=== PATIENT | female | born 2000 | race Hispanic/Latino ===

== ENCOUNTER 2020-07-10 19:40 | Inpatient (IN) | payer MEDICAID ==
[2020-07-10 21:27] LABS: Hematocrit 36.2 % (30.3-42.9); Hemoglobin 12.4 gm/dl (10.1-14.3); Mean Corpuscular HGB Conc 34 % (30-34); Mean Corpuscular Volume 92 fl (79-97); Platelet Count 223 K/mm3 (140-440); Red Blood Count 3.93 M/mm3 (3.65-5.03); Red Cell Distribution Width 15.6 % (13.2-15.2)
[2020-07-10 21:43] LABS: Bacteria,Urine 3+ /HPF (Negative); Bilirubin,Urine NEG (Negative); Blood,Urine NEG (Negative); Color,Urine Yellow (Yellow); Mucus,Urine FEW /HPF; Protein,Urine <15 mg/dL mg/dL (Negative); Urobilinogen,Urine < 2.0 mg/dL (<2.0)
[2020-07-10] MEDS ORDERED: LIDOCAINE (2%) 20 MG/1 ML VIAL 20 ML MDV INFILTRATI ONE (21:45)
[2020-07-10] MEDS ORDERED: fentaNYL 100 MCG/2 ML INJ IV PRN (21:45)
[2020-07-10] MEDS ORDERED: NALOXONE 0.4 MG/1 ML INJ IV PRN (21:45)
[2020-07-10] MEDS ORDERED: BUTORPHANOL 2 MG/1 ML INJ IV PRN (21:45)
[2020-07-10] MEDS ORDERED: PROMETHAZINE 25 MG TAB PO PRN (21:45)
[2020-07-10] MEDS ORDERED: ePHEDrine SULFATE 50 MG/1 ML INJ IV PRN (21:45)
[2020-07-10] MEDS ORDERED: ONDANSETRON 4 MG/2 ML INJ IV PRN (21:45)
[2020-07-10] MEDS ORDERED: TERBUTALINE 1 MG/1 ML INJ SUB-Q PRN (21:45)
[2020-07-10] MEDS ORDERED: MINERAL OIL 30 ML ORAL LIQD PO PRN (21:45)
[2020-07-10] MEDS ORDERED: OXYTOCIN DRIP 30 UNITS/500 ML BAG IV SCH (22:00)
--- NOTE | 2020-07-10 22:03 | History and Physical Report ---
History of Present Illness Date of examination: 07/10/20 Date of admission: 07/10/20 Chief complaint: Sent from office for elevated blood pressure History of present illness: Pt is a 20 yo at 40w5d EGA who presents from [facility] for BP monitoring. She was evaluated at the office earlier today and was found to have mild range BP. She denies SOUSA, scotomata, RUQ pain, swelling, contractions, bleeding, or leaking fluid. She reports positive movement. Her course has been uncomplicated. GBS negative. 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/uterine surgery Social history: no significant social history - Obstetrical History Expected Date of Delivery: 07/05/20 Actual Gestation: 40 Week(s) 5 Day(s) : 1 Para: 0 Medications and Allergies Allergies Allergy/AdvReac Type Severity Reaction Status Date / Time No Known Allergies Allergy Unverified 07/10/20 20:15 Active Meds: Active Medications Butorphanol Tartrate (Butorphanol 2 Mg/1 Ml Inj) 1 mg IV Q2H PRN PRN Reason: Pain, Moderate(4-6) LABOR PAIN Butorphanol Tartrate (Butorphanol 2 Mg/1 Ml Inj) 2 mg IV Q2H PRN PRN Reason: Pain , Severe (7-10) Dinoprostone (Dinoprostone 10 Mg Vag Supp) 10 mg VG ONCE ONE Stop: 07/11/20 00:46 Ephedrine Sulfate (Ephedrine Sulfate 50 Mg/1 Ml Inj) 10 mg IV Q2M PRN PRN Reason: Hypotension Fentanyl (Fentanyl 100 Mcg/2 Ml Inj) 100 mcg IV Q2H PRN PRN Reason: Pain,Severe (7-10) LABOR PAIN Lactated Ringer's (Lactated Ringers) 1,000 mls @ 125 mls/hr IV DIRECT REMEDIOS Oxytocin/Sodium Chloride (Pitocin/Ns 30 Unit/500ml) 30 units in 500 mls @ 40 mls/hr IV TITR REMEDIOS; Protocol Lidocaine (Lidocaine (2%) 20 Mg/1 Ml Vial 20 Ml Mdv) 20 ml INFILTRATI ONCE ONE Stop: 07/10/20 21:46 Mineral Oil (Mineral Oil 30 Ml Oral Liqd) 30 ml PO QHS PRN PRN Reason: Constipation Naloxone HCl (Naloxone 0.4 Mg/1 Ml Inj) 0.1 mg IV Q2MIN PRN PRN Reason: Res Rate </= 8 or 02 SAT < 92% Ondansetron HCl (Ondansetron 4 Mg/2 Ml Inj) 4 mg IV Q8H PRN PRN Reason: Nausea And Vomiting Promethazine HCl (Promethazine 25 Mg Tab) 25 mg PO Q6H PRN PRN Reason: Nausea And Vomiting Terbutaline Sulfate (Terbutaline 1 Mg/1 Ml Inj) 0.25 mg SUB-Q ONCE PRN PRN Reason: Hyperstimulation/Hypertonicity Review of Systems All systems: negative Genitourinary: no vaginal bleeding, no leakage of fluid, no contractions - Vital Signs Vital signs: Vital Signs Temp Resp 98.8 F 18 07/10/20 20:25 07/10/20 20:25 Temp Pulse Resp BP Pulse Ox 98.8 F 103 H 18 136/80 07/10/20 20:25 07/10/20 20:54 07/10/20 20:25 07/10/20 20:54 - Physical Exam Abdomen: Positive: soft Uterus: Positive: enlarged (gravid, cephalic, EFW 9lb) Extremities: Positive: normal - Obstetrical FHR: category 1 Uterine Contraction Monitor Mode: External Cervical Dilatation: 0.5 (per RN) Uterine Contraction Pattern: Irregular Uterine Tone Measurement Phase: Contraction Uterine Contraction Intensity: Mild Results Result Diagrams: 07/10/20 21:10 Abnormal lab results 07/10/20 07/10/20 Range/Units 20:20 21:10 WBC 11.4 H (4.5-11.0) K/mm3 RDW 15.6 H (13.2-15.2) % U Epithel Cells (Auto) 32.0 H (0-13.0) /HPF All other labs normal. Assessment and Plan A: 20 yo at 40w5d EGA Gestational HTN EFW 9lb by Hang's GBS negative, membranes intact P: Admit to L&D Induction of labor- Cervidil Closely monitor clinical status
[2020-07-10] MEDS: LACTATED RINGERS 1,000 ML IV SCH (23:15)
[2020-07-11] MEDS ORDERED: DINOPROSTONE 10 MG VAG SUPP VG ONE (00:45)
[2020-07-11] MEDS: LACTATED RINGERS 1,000 ML IV SCH ×4 (04:07→21:42)
[2020-07-11] MEDS: miSOPROStol 25 MCG TAB VG PRN ×2 (16:30→21:21)
--- NOTE | 2020-07-11 18:23 | Progress Note ---
Assessment and Plan A: IUP at 40w6d Gestational HTN Morbid Obesity GBS Negative P: Continue cervical ripening Closely monitor maternal and status Subjective - Subjective Date of service: 07/11/20 Principal diagnosis: undergoing induction of labor, Gestational HTN Interval history: Pt s/p cervidil. s/p 1 dose of cytotec 25 mcg bucally. Patient reports: contractions, no new complaints, no loss of fluid, no vaginal bleeding Objective - Vital Signs Vital Signs: Vital Signs - 12hr 07/11/20 07/11/20 07/11/20 06:30 06:59 07:29 Temperature Pulse Rate 104 H 91 H 88 Respiratory Rate Blood Pressure 134/60 112/56 125/57 Blood Pressure [Left] O2 Sat by Pulse Oximetry 07/11/20 07/11/20 07/11/20 07:59 08:30 08:31 Temperature 98.0 F Pulse Rate 104 H 86 75 Respiratory 18 Rate Blood Pressure 101/49 109/53 Blood Pressure 109/53 [Left] O2 Sat by Pulse 100 Oximetry 07/11/20 07/11/20 07/11/20 08:59 09:29 10:00 Temperature Pulse Rate 90 96 H 100 H Respiratory Rate Blood Pressure 131/70 117/72 113/70 Blood Pressure [Left] O2 Sat by Pulse Oximetry 07/11/20 07/11/20 07/11/20 10:29 10:59 11:30 Temperature Pulse Rate 91 H 104 H 86 Respiratory Rate Blood Pressure 99/51 116/53 96/50 Blood Pressure [Left] O2 Sat by Pulse Oximetry 07/11/20 07/11/20 07/11/20 11:59 12:12 12:29 Temperature 97.8 F Pulse Rate 98 H 100 H Respiratory 16 Rate Blood Pressure 129/71 130/82 Blood Pressure [Left] O2 Sat by Pulse Oximetry 07/11/20 07/11/20 15:28 15:56 Temperature 97.9 F Pulse Rate 102 H Respiratory 16 Rate Blood Pressure 141/80 Blood Pressure [Left] O2 Sat by Pulse Oximetry - Exam Breasts: deferred Abdomen: Present: soft (obese, gravid ) Uterus: Present: normal (gravid ) FHR: auscultation normal Cervical Dilatation: 0 (per RN ) Uterine Contraction Pattern: Irregular Uterine Tone Measurement Phase: Resting - Labs Labs: Abnormal Labs 07/10/20 07/10/20 20:20 21:10 WBC 11.4 H RDW 15.6 H Urine WBC (Auto) 9.0 H U Epithel Cells (Auto) 32.0 H Laboratory Results - last 24 hr 07/10/20 07/10/20 07/10/20 20:20 21:10 21:10 WBC 11.4 H RBC 3.93 Hgb 12.4 Hct 36.2 MCV 92 MCH 32 MCHC 34 RDW 15.6 H Plt Count 223 Urine Color Yellow Urine Turbidity Cloudy Urine pH 7.0 Ur Specific [place] 1.005 Urine Protein <15 mg/dl Urine Glucose (UA) Neg Urine Ketones Neg Urine Blood Neg Urine Nitrite Neg Urine Bilirubin Neg Urine Urobilinogen < 2.0 Ur Leukocyte Esterase Tr Urine WBC (Auto) 9.0 H Urine RBC (Auto) 2.0 U Epithel Cells (Auto) 32.0 H Urine Bacteria (Auto) 3+ Urine Mucus Few Syphilis IgG Antibody Coronavirus (PCR) Hep Bs Antigen Non-reactive HIV 1&2 Antibody Rapid Non react HIV P24 Antigen Non react Blood Type Antibody Screen 07/10/20 07/10/20 07/11/20 21:10 21:10 Unknown WBC RBC Hgb Hct MCV MCH MCHC RDW Plt Count Urine Color Urine Turbidity Urine pH Ur Specific [place] Urine Protein Urine Glucose (UA) Urine Ketones Urine Blood Urine Nitrite Urine Bilirubin Urine Urobilinogen Ur Leukocyte Esterase Urine WBC (Auto) Urine RBC (Auto) U Epithel Cells (Auto) Urine Bacteria (Auto) Urine Mucus Syphilis IgG Antibody Nonreactive Coronavirus (PCR) Negative Hep Bs Antigen HIV 1&2 Antibody Rapid HIV P24 Antigen Blood Type O POSITIVE Antibody Screen Negative
[2020-07-12] MEDS: miSOPROStol 25 MCG TAB VG PRN (01:11)
[2020-07-12] MEDS: BUTORPHANOL 2 MG/1 ML INJ IV PRN ×2 (05:01→07:04)
[2020-07-12] MEDS ORDERED: fentaNYL-BUPIV 2 MCG/ML-0.125% 200 MCG/100 ML BAG EPIDURAL ONE (09:37)
[2020-07-12] MEDS ORDERED: NALOXONE 2 MG/2 ML INJ IV PRN (09:40)
[2020-07-12] MEDS ORDERED: ePHEDrine SULFATE 50 MG/1 ML INJ IV PRN (09:40)
--- NOTE | 2020-07-12 09:44 | Anesthesia Consultation ---
Anesthesia Consult and Med Hx Date of service: 07/12/20 - Airway Anesthetic Teeth Evaluation: Good, Poor ROM Head & Neck: Adequate Mental/Hyoid Distance: Adequate Mallampati Class: Class II Intubation Access Assessment: Good - Pulmonary Exam CTA: Yes - Cardiac Exam Cardiac Exam: RRR - Pre-Operative Health Status ASA Pre-Surgery Classification: ASA2 Proposed Anesthetic Plan: Epidural - Pulmonary Hx Smoking: No Hx Asthma: No Hx Respiratory Symptoms: No SOB: No COPD: No Home Oxygen Therapy: No Hx Pneumonia: No Hx Sleep Apnea: No - Cardiovascular System Hx Hypertension: No Hx Coronary Artery Disease: No Hx Heart Attack/AMI: No Hx Angina: No Hx Percutaneous Transluminal Coronary Angioplasty (PTCA): No Hx Cardia Arrhythmia: No Hx Pacemaker: No Hx Internal Defibrillator: No Hx Valvular Heart Disease: No Hx Heart Murmur: No Hx Peripheral Vascular Disease: No - Central Nervous System Hx Neuromuscular Disorder: No Hx Seizures: No CVA: No Hx Back Pain: Yes Hx Psychiatric Problems: Yes (ANXIETY DX 2014) - Gastrointestinal Hx Ulcer: No Hx Gastroesophageal Reflux Disease: Yes - Endocrine Hx Renal Disease: No Hx End Stage Renal Disease: No Hx Cirrhosis: No Hx Liver Disease: No Hx Insulin Dependent Diabetes: No Hx Non-Insulin Dependent Diabetes: No Hx Thyroid Disease: No Hx Hypothyroidism: No Hx Hyperthyroidism: No - Hematic Hx Anemia: No Hx Sickle Cell Disease: No - Other Systems Hx Alcohol Use: No Hx Substance Use: Yes (CBD) Hx Cancer: No Hx Obesity: Yes
--- NOTE | 2020-07-12 09:47 | Progress Note ---
Labor Epidural - Labor Epidural Start Time: 09:21 Stop Time: 09:32 Performed by:: GONSALO SWEET Procedure: Patient is requesting a laboring epidural for laboring pain. Patient IDed, H&P reviewed, all questions and concerns were answered, and consent was signed. Timeout was performed at bedside. Patient in sitting position. Sterile prep and drape was performed. 3ml of 1% lidocaine skin wheal at L[3]- L [4]. 18- gauge Tuohy epidural needle was advanced to loss of resistance with air technique. Negative CSF negative blood. Epidural catheter advanced to [11] centimeters. [NEGATIVE] Aspiration [NEGATIVE] test dose. Sterile dressing applied. Patient tolerated procedure.
--- NOTE | 2020-07-12 09:58 | Event Note ---
Date: 07/12/20 Pt now comfortable with epidural. Category II tracing. SVE: /-3/Intact. Continue routine intrapartum care.
[2020-07-12] MEDS ORDERED: fentaNYL-BUPIV 2 MCG/ML-0.125% 200 MCG/100 ML BAG EPIDURAL SCH (10:00)
[2020-07-12] MEDS: LACTATED RINGERS 1,000 ML IV SCH (10:06)
--- NOTE | 2020-07-12 12:06 | Event Note ---
Date: 07/12/20 Pt comfortable with epidural. Category I tracing. SVE: /-2. AROM- clear fluid. Continue pitocin augmentation. Closely monitor maternal and status.
[2020-07-12] MEDS ORDERED: FAMOTIDINE 20 MG/2 ML INJ IV ONE (15:45)
[2020-07-12] MEDS ORDERED: BICITRA ORAL LIQD 30ML PO ONE (15:45)
[2020-07-12] MEDS ORDERED: LACTATED RINGERS 1,000 ML IV SCH (15:45)
[2020-07-12] MEDS ORDERED: METOCLOPRAMIDE 10 MG/2 ML INJ IV ONE (15:45)
--- NOTE | 2020-07-12 15:48 | Event Note ---
Date: 07/12/20 Pt exam was /-2 after three hours of adequate contractions. Plan to proceed with primary section.
--- NOTE | 2020-07-12 15:53 | Anesthesia Day of Surgery ---
Anesthesia Day of Surgery - Day of Surgery Patient Examined: Yes Patient H&P Reviewed: Yes Patient is NPO: Yes Beta Blockers: No Cardiac Clearance: No Pulmonary Clearance: No Morgan's Test: N/A
[2020-07-12] MEDS ORDERED: ceFAZolin/Water 2 GM/20 ML 2 GM/20 ML SYRINGE IV NR (16:00)
[2020-07-12] MEDS ORDERED: OXYTOCIN DRIP 30 UNITS/500 ML BAG IV SCH ×2 (16:00→18:00)
[2020-07-12] MEDS ORDERED: WATER FOR IRRIG STERILE 1,500 ML BOTTLE IR ONE (16:20)
[2020-07-12] MEDS ORDERED: SODIUM CHLORIDE 0.9% IRR 1,500 ML BOTTLE IR ONE (16:20)
[2020-07-12] MEDS ORDERED: dexAMETHasone 20 MG/5 ML VIAL ONE (16:27)
[2020-07-12] MEDS ORDERED: ONDANSETRON 4 MG/2 ML INJ ONE (16:27)
[2020-07-12] MEDS ORDERED: BUPIVACAINE/PF (0.5%) 5 MG/1 ML 30 ML VIAL INFILTRATI ONE (16:27)
[2020-07-12] MEDS ORDERED: LIDOCAINE 2%/EPINEPHRINE 1:200,000 VIAL (20 ML) INFILTRATI ONE (16:27)
[2020-07-12] MEDS ORDERED: propofoL 200 MG/20 ML VIAL IV ONE (16:51)
[2020-07-12] MEDS ORDERED: miSOPROStol 200 MCG TAB ONE (16:51)
[2020-07-12] MEDS ORDERED: KETOROLAC 30 MG/1 ML INJ ONE (16:59)
--- NOTE | 2020-07-12 17:35 | Procedure Note ---
OB Delivery Note - Delivery Date of Delivery: 07/12/20 Surgeon: GARRY MARQUEZ Estimated blood loss: 1000cc - Section Preop diagnosis: arrest of dilation Postop diagnosis: same section procedure: section, primary low transverse Disposition: PACU Narrative: Please see delivery note - A at 1 minute: 8 at 5 minutes: 9 Gender: Male (4554g (10lb 0.6 oz) @ 1643 pm)
--- NOTE | 2020-07-12 17:42 | Operative Report ---
Operative Report Operative Report: Date of procedure: July 12, 2020 Preoperative diagnosis: 1) IUP at 41w0d 2) Arrest of Dilation 3) Morbid Obesity 4) Gestational Hypertension Postoperative diagnosis: Same 4) Macrosomia Procedure: Primary low transverse section Surgeon: Vania Tobar M.D. Anesthesia: Regional Findings: 1) Viable male , Apgars 8 and 9, weight 4554 g, (10 lb 0.6 oz) in cephalic presentation. True knot in the cord. 2) Normal-appearing uterus ovaries and tubes Estimated blood loss: 1000 mL IV fluids:2000 mL Urine output: 150 mL, clear at the end of the procedure Drains: Alvarez to gravity Specimens: Placenta to pathology Complications:None. Counts correct x 3 Disposition: Stable to PACU Indication for procedure: Pt is a 20 year old primigravia at 41 wks admitted for induction of labor secondary to gestational hypertension. She progressed to 8 cm and arrested there for over 3 hours. The decision was made to proceed with . Operation in detail: After the risks, benefits, alternatives and complications were explained to the patient she gave informed consent for the procedure. She was subsequently taken to the operating room where regional anesthesia was noted to be adequate. She was subsequently placed in the dorsal supine position with leftward tilt and prepped and draped in a normal sterile fashion. heart tones were noted prior to incision. A timeout was performed. A Pfannenstiel skin incision was made with the knife and carried down to the layer of the fascia with the Bovie. The fascia was incised in the midline and the fascial incision was extended bilaterally with the Bovie. The fascial incision was then stretched. The rectus muscles were then in the midline and partially transected for adequate visualization. The peritoneum was then entered bluntly. The peritoneal incision was extended with good visualization of the bladder. The peritoneal incision was then stretched. An Nabor retractor was placed. The bladder blade was then placed. The vesicouterine peritoneuam was graped with smooth pick ups and incised with Metzenbaum scissors. A bladder flap was then created digitally and the bladder blade was replaced. A transverse incision was made in the lower uterine segment with a knife and extended bilaterally with the bandage scissors. head delivered with ease, followed by shoulders and body. bulb suctioned at delivery. Cord clamped and cut. handed to NICU staff in attendance. Cord blood was collected. The placenta was then delivered manually. The uterus was then exteriorized and cleared of all clots and debris. The hysterotomy was then reapproximated with 0 Vicryl in a running locked fashion. A second layer of the same suture was used in imbricating fashion. The hysterotomy was inspected and hemostasis was noted. The gutters were irrigated and cleared of all clots and debris. The hysterotomy was again inspected and noted to be hemostatic. Surgicel was placed over the hysterotomy. The Nabor retractor was removed. The uterus was placed back into the peritoneal cavity. The peritoneum was reapproximated with 2-0 Vicryl in a running fashion incorporating the rectus muscles. Surgicel was placed over the rectus muscles. The fascia was reapproximated with 0 Vicryl in a running fashion. The subcutaneous tissue was reapproximated with 3-0 Vicryl in a running fashion. The skin was reapproximated with 4-0 Vicryl in a subcuticular fashion. The incision was then covered with steri strips and a pressure dressing. The procedure was then ended. The patient tolerated the procedure well and was taken to the PACU in stable condition. All instrument, lap, and needle counts were correct 3. Misoprostol 800 mcg per rectum administered.
[2020-07-12] MEDS ORDERED: MORPHINE 2 MG/1 ML INJ IV PRN (17:44)
[2020-07-12] MEDS ORDERED: NALOXONE 0.4 MG/1 ML INJ IV PRN (17:44)
[2020-07-12] MEDS ORDERED: LANOLIN/ZINC/DIMETHICONE (LANSINOH) 7 GM TP PRN (17:44)
[2020-07-12] MEDS ORDERED: MORPHINE 4 MG/1 ML INJ IV PRN (17:44)
[2020-07-12] MEDS ORDERED: WITCH HAZEL/ GLYCERIN PAD TP PRN (17:44)
[2020-07-12] MEDS ORDERED: MAGNESIUM HYDROXIDE (MOM) ORAL LIQD UDC PO PRN (17:44)
[2020-07-12] MEDS ORDERED: SIMETHICONE 80 MG CHEW TAB PO PRN (17:44)
[2020-07-12] MEDS ORDERED: NalbUPHINE 10 MG/1 ML INJ IV PRN (17:59)
[2020-07-12] MEDS ORDERED: PROMETHAZINE 25 MG RECT SUPP PR PRN (17:59)
[2020-07-12] MEDS ORDERED: HYDROmorphone 1 MG/1 ML INJ IV PRN (17:59)
[2020-07-12] MEDS ORDERED: diphenhydrAMINE 50 MG/ML VIAL IV PRN (17:59)
[2020-07-12] MEDS ORDERED: D5W/LACTATED RINGERS 1,000 ML IV SCH (18:00)
[2020-07-12] MEDS: KETOROLAC 30 MG/1 ML INJ IV SCH (22:18)
[2020-07-12] MEDS: D5W/LACTATED RINGERS 1,000 ML IV SCH (22:28)
[2020-07-12] MEDS: ceFAZolin/NS 1 GM/50 ML 1 GM/50 ML BAG IV SCH (23:47)
[2020-07-13] MEDS: KETOROLAC 30 MG/1 ML INJ IV SCH ×2 (04:13→11:19)
[2020-07-13] MEDS: D5W/LACTATED RINGERS 1,000 ML IV SCH (05:22)
[2020-07-13] MEDS ORDERED: DIPHtheria,PERTUSSIS(ACELL),TETANUS VACCINE/PF 0.5 ML VIAL IM ONE (06:00)
[2020-07-13] MEDS ORDERED: ceFAZolin/NS 1 GM/50 ML 1 GM/50 ML BAG IV ONE (08:11)
[2020-07-13] MEDS: ceFAZolin/NS 1 GM/50 ML 1 GM/50 ML BAG IV SCH (08:16)
[2020-07-13 08:56] LABS: Hematocrit 28.2 % (30.3-42.9); Hemoglobin 9.6 gm/dl (10.1-14.3)
[2020-07-13] MEDS: FERROUS SULFATE 325 MG TAB PO SCH (09:45)
[2020-07-13] MEDS: oxyCODONE /ACETAMINOPHEN 5-325MG TAB PO PRN ×3 (09:45→22:12)
--- NOTE | 2020-07-13 10:23 | Progress Note ---
Assessment and Plan A: POD#1 s/p primary at term Gestational Hypertension Morbid Obesity Acute Blood Loss Anemia P: Routine postop advances Subjective - Subjective Date of service: 07/13/20 Principal diagnosis: s/p primary , Morbid Obesity, Gestational HTN Interval history: Pt doing well this morning. Tolerating clears. No void yet after herring removal. Patient reports: appetite normal, pain well controlled, flatus, ambulating normally, no voiding normally (herring recently removed ) : doing well Objective - Vital Signs Latest vital signs: Vital Signs Temp Pulse Resp BP BP Pulse Ox 07/13/20 08:03 98.7 F 81 18 117/77 98 07/13/20 05:17 98.3 F 109 H 20 139/85 97 07/13/20 04:13 20 07/13/20 00:09 98.0 F 117 H 20 132/76 96 07/12/20 22:18 20 07/12/20 20:56 99.0 F 88 20 114/71 96 07/12/20 20:00 99.0 F 88 20 118/60 07/12/20 19:00 99.0 F 89 16 115/68 95 07/12/20 18:45 80 18 124/70 95 07/12/20 18:30 76 16 116/63 99 07/12/20 18:15 90 14 112/43 100 07/12/20 18:00 94 H 20 126/60 100 07/12/20 17:45 92 H 16 120/63 100 07/12/20 17:40 95 H 18 115/64 99 07/12/20 17:35 98.2 F 105 H 17 113/62 100 07/12/20 16:06 139 H 120/79 07/12/20 16:02 109 H 138/66 07/12/20 15:47 120 H 100 07/12/20 15:42 115 H 99 07/12/20 15:37 105 H 99 07/12/20 15:32 102 H 100 07/12/20 15:27 96 H 99 07/12/20 15:22 96 H 100 07/12/20 15:17 102 H 100 07/12/20 15:12 104 H 100 07/12/20 15:07 104 H 130/72 100 07/12/20 15:02 107 H 100 07/12/20 14:57 106 H 100 07/12/20 14:52 107 H 99 07/12/20 14:47 109 H 100 07/12/20 14:42 102 H 100 07/12/20 14:37 101 H 99 07/12/20 14:32 102 H 100 07/12/20 14:27 113 H 99 07/12/20 14:22 107 H 100 07/12/20 14:17 103 H 100 07/12/20 14:12 87 99 07/12/20 14:07 90 98 07/12/20 14:05 100 H 116/57 07/12/20 14:04 98.3 F 99 H 18 116/57 97 07/12/20 14:02 96 H 97 07/12/20 13:57 95 H 96 07/12/20 13:52 97 H 96 07/12/20 13:47 88 97 07/12/20 13:42 87 96 07/12/20 13:37 90 96 07/12/20 13:32 97 H 96 07/12/20 13:27 90 96 07/12/20 13:22 95 H 96 07/12/20 13:17 87 97 07/12/20 13:12 87 97 07/12/20 13:07 83 124/69 98 07/12/20 13:02 102 H 98 07/12/20 12:57 89 98 07/12/20 12:52 92 H 98 07/12/20 12:47 88 98 07/12/20 12:42 85 98 07/12/20 12:37 80 99 07/12/20 12:32 78 99 07/12/20 12:27 83 99 07/12/20 12:22 101 H 100 07/12/20 12:17 102 H 100 07/12/20 12:12 86 99 07/12/20 12:07 95 H 99 07/12/20 12:06 95 H 124/75 07/12/20 12:02 96 H 100 07/12/20 11:57 87 99 07/12/20 11:52 113 H 98 07/12/20 11:47 111 H 98 07/12/20 11:42 95 H 97 07/12/20 11:37 95 H 97 07/12/20 11:35 92 H 107/55 07/12/20 11:33 93 H 108/58 07/12/20 11:32 98 H 97 07/12/20 11:27 93 H 96 07/12/20 11:22 89 97 07/12/20 11:17 92 H 97 07/12/20 11:12 97 H 97 07/12/20 11:07 97 H 97 07/12/20 11:05 85 112/63 07/12/20 11:02 88 96 07/12/20 11:00 104 H 106/55 07/12/20 10:57 90 96 07/12/20 10:55 94 H 98/54 07/12/20 10:54 98.0 F 88 18 101/55 96 07/12/20 10:52 98 H 96 07/12/20 10:47 97 H 96 07/12/20 10:42 97 H 96 07/12/20 10:37 94 H 96 07/12/20 10:35 93 H 112/59 07/12/20 10:32 101 H 96 07/12/20 10:27 99 H 95 07/12/20 10:22 95 H 96 Intake and Output 07/12/20 07/13/20 07/13/20 22:59 06:59 14:59 Intake Total 2030.7 912.5 120 Output Total 250 Balance 1780.7 912.5 120 Intake: IV 1790.7 912.5 ANCEF/NS 1 GM/50 ML 1 gm 50 In 50 ml @ 100 mls/hr IV Q8H REMEDIOS Rx#:[id number] D5lr 1,000 ml @ 125 mls/ 862.5 hr IV DIRECT REMEDIOS Rx#: [id number] PITOCin/NS 30 UNIT/500ML 40.7 30 units In 500 ml @ 40 mls/hr IV TITR REMEDIOS Rx#: [id number] Oral 240 120 Output: Urine 250 Other: Total, Intake Amount 240 120 # Voids Void 900 1,600 Estimated Blood Loss 1,000 - Exam Breasts: Present: deferred Abdomen: Present: soft (obese ), distention (mild ) Extremities: Present: edema (1+) Incision: Present: dressed - Labs Labs: Abnormal lab results 07/13/20 Range/Units 08:22 Hgb 9.6 L (10.1-14.3) gm/dl Hct 28.2 L D (30.3-42.9) %
[2020-07-13] MEDS: MAGNESIUM HYDROXIDE (MOM) ORAL LIQD UDC PO SCH ×2 (11:18→22:08)
--- NOTE | 2020-07-13 11:35 | Post Anesthesia Evaluation ---
- Post Anesthesia Evaluation Patient Participated: Yes Airway Patent: Yes Stable Respiratory Function: Yes Nausea/Vomiting: No Temp > 96.8F: Yes Pain Manageable: Yes Adequeate Hydration: Yes Anesthesia Complications: No Block Receding Appropriately: Yes Patient on Ventilator: No
[2020-07-13] MEDS ORDERED: MEASLES, MUMPS & RUBELLA 12,500 UNIT/0.5 ML VACCINE SUB-Q ONE (17:45)
[2020-07-13] MEDS: IBUPROFEN 800 MG TAB PO PRN (23:15)
[2020-07-14] MEDS: oxyCODONE /ACETAMINOPHEN 5-325MG TAB PO PRN ×2 (02:30→10:16)
[2020-07-14] MEDS: IBUPROFEN 800 MG TAB PO PRN ×2 (06:27→16:03)
--- NOTE | 2020-07-14 09:01 | Progress Note ---
Regional Anesthesia Block - Regional Anesthesia Block Start Time: 17:38 Stop Time: 17:48 Performed By:: JOSE HERNANDEZ Procedure: Patient consented for TAP block for post surgical pain management. Patient identified, monitors placed, and time out performed. Mid axillary TAP identified bilaterally via ultrasound. Skin prepped bilaterally with [chlorhexidine] and [20g stimuplex] needle advanced to the TAP. 30ml [Marcaine 0.25% with 25mcg Pre cedex and Decadron 4mg] injected under ultrasound guidance on the [left] side. 30ml [Marcaine 0.25% with 25mcg Precedex and Decadron 4mg] injected under ultrasound guidance on the [right] side. (Performed on 07/11/20)
[2020-07-14] MEDS: FERROUS SULFATE 325 MG TAB PO SCH (10:17)
[2020-07-14 16:03] VITALS: BP 138/77
--- NOTE | 2020-07-14 19:02 | Progress Note ---
Subjective - Subjective Date of service: 07/14/20 Principal diagnosis: s/p primary , Morbid Obesity, Gestational HTN Patient reports: appetite normal, voiding normally, pain well controlled, ambulating normally [place]: doing well Objective - Vital Signs Latest vital signs: Vital Signs Temp Pulse Resp BP BP Pulse Ox 07/14/20 15:57 97.6 F 95 H 18 138/77 100 07/14/20 07:47 97.9 F 93 H 18 106/65 98 07/14/20 07:17 18 07/14/20 06:27 18 07/14/20 03:30 18 07/14/20 02:30 18 07/14/20 00:56 98.8 F 77 18 115/74 07/14/20 00:15 18 07/13/20 23:15 18 07/13/20 23:12 18 07/13/20 22:12 18 07/13/20 20:22 98.1 F 116 H 18 128/87 98 Intake and Output 07/14/20 07/14/20 07/14/20 06:59 14:59 22:59 Intake Total 500 Balance 500 Intake: Oral 200 Intake, Free Water 300 Other: Total, Intake Amount 200 # Voids Void 1 1 1 - Exam Breasts: Present: deferred Cardiovascular: Present: Regular rate, Normal S1, Normal S2 Lungs: Present: Clear to auscultation, Normal air movement Abdomen: Present: normal appearance, soft, normal bowel sounds Uterus: Present: normal, firm
--- NOTE | 2020-07-14 19:04 | Discharge Summary ---
Providers - Providers Date of Admission: 07/10/20 21:45 Date of discharge: 07/14/20 Attending physician: DORIS LAWRENCE 07/12/20 17:44 Consult to [employer] [CONS] Routine Reason For Exam: Primary care physician: DORIS LAWRENCE Hospitalization Reason for admission: induction of labor Delivery: Procedure: primary low transverse Incision: normal, dry, intact Other procedures: none complications: none Discharge diagnosis: IUP at term delivered [place] baby: male Hospital course: unremarkable Condition at discharge: Good Disposition: DC-01 TO HOME OR SELFCARE Plan - Discharge Medications Prescriptions: Ferrous Sulfate [Feosol 325 MG tab] 325 mg PO BID #60 tablet Ibuprofen [Motrin] 800 mg PO Q8HR PRN #30 tablet PRN Reason: Pain, Moderate (4-6) oxyCODONE /ACETAMINOPHEN [Percocet 5/325] 1 tab PO Q6HR PRN #30 tablet PRN Reason: Pain - Provider Discharge Summary Activity: routine, no sex for 6 weeks, no heavy lifting 4 weeks, no strenuous exercise Diet: routine Instructions: routine Additional instructions: [] Smoking cessation referral if applicable(refer to patient education folder for contact #) [] Refer to [facility] Booklet Call your doctor immediately for: * Fever > 100.5 * Heavy vaginal bleeding ( >1 pad per hour) * Severe persistent headache * Shortness of breath * Reddened, hot, painful area to leg or breast * Drainage or odor from incision. * Keep incision clean and dry at all times and follow doctor's instructions rega rding bathing/showering - Follow up plan Follow up: DORIS LAWRENCE MD [Primary Care Provider] - 14 Days Forms: [facility] Discharge Summary
== END 2020-07-14 20:20 | disposition home or self-care (01) | DRG 765 ==
LOC: TRG 19:40 → APU 19:43 → LD 21:45 → TRG 21:45 → OB 07-12 21:00
PROVIDERS: ADMIT Obstetrics & Gynecology; ATTEND Obstetrics & Gynecology
PROC: 3E0P7VZ Introduction of Hormone into Female Reproductive, Via Natural or Artificial Opening (ICD-10-PCS; 2020-07-10)
PROC: 10D00Z1 Extraction of Products of Conception, Low, Open Approach (ICD-10-PCS; principal; 2020-07-12)
PROC: 3E0R3BZ Introduction of Anesthetic Agent into Spinal Canal, Percutaneous Approach (ICD-10-PCS; 2020-07-12)
PROC: 00HU33Z Insertion of Infusion Device into Spinal Canal, Percutaneous Approach (ICD-10-PCS; 2020-07-12)
PROC: 3E0T3BZ Introduction of Anesthetic Agent into Peripheral Nerves and Plexi, Percutaneous Approach (ICD-10-PCS; 2020-07-12)
PROC: 3E0234Z Introduction of Serum, Toxoid and Vaccine into Muscle, Percutaneous Approach (ICD-10-PCS; 2020-07-13)
PROC: 3E0134Z Introduction of Serum, Toxoid and Vaccine into Subcutaneous Tissue, Percutaneous Approach (ICD-10-PCS; 2020-07-13)
DX: O13.4 Gestational [pregnancy-induced] hypertension without significant proteinuria, complicating childbirth (principal); D62 Acute posthemorrhagic anemia; O32.4XX0 Maternal care for high head at term, not applicable or unspecified; Z37.0 Single live birth; Z3A.40 40 weeks gestation of pregnancy; O99.214 Obesity complicating childbirth; E66.01 Morbid (severe) obesity due to excess calories; O62.1 Secondary uterine inertia; O69.2XX0 Labor and delivery complicated by other cord entanglement, with compression, not applicable or unspecified; O36.63X0 Maternal care for excessive fetal growth, third trimester, not applicable or unspecified; O90.81 Anemia of the puerperium; Z23 Encounter for immunization; Z20.822 Contact with and (suspected) exposure to COVID-19
CPT/HCPCS: 36415; 59025; 59200; 81001; 85014; 85018; 85027; 86592; 86706; 86850; 86900; 86901; 87086; 87806; G0378; J0595; J0690; J1100; J1885; J2405; J2590; J2704; J2765; J7120; J7121; U0003